=== PATIENT | male | born 1980 | race African-American/Black ===

== ENCOUNTER 2020-04-19 20:05 | Emergency (ER) | payer SELFPAY ==
[~2020-04-19] VITALS: Ht 180.3 cm; Wt 100.0 kg
[2020-04-19 20:15] VITALS: BP 137/86
[2020-04-19] MEDS: CEFTRIAXONE SODIUM 500 MG/VIAL IM ONE (21:07)
[2020-04-19 21:13] LABS: CLARITY URINE CLOUDY (CLEAR); COLOR URINE DARK YELLOW (YELLOW); KETONES URINE NEGATIVE (NEGATIVE); LEUKOCYTE ESTERASE URINE 2+ (NEGATIVE); NITRITE URINE POSITIVE (NEGATIVE); OCCULT BLOOD URINE 3+ (NEGATIVE); PROTEIN URINE 1+ (NEGATIVE); SPECIFIC GRAVITY URINE 1.015 (1.005-1.030)
[2020-04-19] MEDS ORDERED: CEPH250C2 MT (23:59)
[2020-04-19] MEDS ORDERED: DOXY100C2 MT (23:59)
== END 2020-04-20 00:08 | disposition home or self-care (01) ==
LOC: ER 20:05
DX: N39.0 Urinary tract infection, site not specified (principal)
CPT/HCPCS: 81003; 87086; 87491; 87591; 96372; 99283; J0696